=== PATIENT | female | born 1995 | race Caucasian/White ===

== ENCOUNTER 2023-05-27 15:43 | Emergency (ER) | payer MEDICAID ==
[~2023-05-27] VITALS: Ht 165.1 cm; Wt 72.6 kg
[~2023-05-27 15:43] MED LIST: CALCIUM; FERR325E14 PO; PREN-385 PO
[2023-05-27 15:58] VITALS: BP 111/70; PULSE 96; RESP 18; TEMP 98.1; O2SAT 98
[2023-05-27] MEDS ORDERED: ONDANSETRON 4 MG/2 ML VIAL IVP ONE (16:20)
[2023-05-27] MEDS ORDERED: KETOROLAC 30 MG/ML VIAL IVP ONE (16:20)
[2023-05-27] MEDS ORDERED: NACL 0.9% 1,000 ML IV ONE (16:20)
[2023-05-27 17:05] LABS: BASOPHILS % (AUTO) 0.4 % (0.0-2.0); EOSINOPHILS % (AUTO) 0.1 % (0.0-4.0); HEMATOCRIT 39.7 % (36-48); HEMOGLOBIN 13.7 g/dL (12.0-16.0); LYMPHOCYTES # (AUTO) 1.9 K/uL (2.5-16.5); LYMPHOCYTES % (AUTO) 24.1 % (20.5-51.1); MEAN CORPUSCULAR HEMOGLOBIN 31 pg (27-31); MEAN CORPUSCULAR HGB CONC 35 g/dL (33-37); MEAN CORPUSCULAR VOLUME 89.8 fL (80-94); MONOCYTES # (AUTO) 0.9 K/uL (0.8-1.0); MONOCYTES % (AUTO) 11.5 % (1.7-9.3); NEUTROPHILS # (AUTO) 5.1 K/uL (1.8-7.7); NEUTROPHILS % (AUTO) 63.9 % (42.2-75.2); PLATELET COUNT (AUTO) 306 K/uL (140-450); RED BLOOD CELL COUNT(AUTO) 4.42 MIL/uL (4.20-5.40); RED CELL DISTRIBUTION WIDTH 12.4 % (11.6-13.7); WHITE BLOOD COUNT (AUTO) 7.9 K/uL (4.8-10.8)
[2023-05-27 17:12] LABS: APPEARANCE,URINE CLEAR (CLEAR); BILIRUBIN,URINE 1+ (NEGATIVE); BLOOD, URINE NEGATIVE (NEGATIVE); COLOR,URINE YELLOW (YELLOW); LEUKOCYTE ESTERASE ,URINE NEGATIVE (NEGATIVE); NITRITE, URINE NEGATIVE (NEGATIVE); PROTEIN,URINE TRACE (NEGATIVE); UGLUCOSE NEGATIVE (NEGATIVE); UROBILINOGEN,URINE 0.2 EU/dL (0.2 - 1)
[2023-05-27 17:13] LABS: ANION GAP 10.6 (8-16); CALCIUM 8.8 mg/dL (8.5-10.1); CARBON DIOXIDE 28.6 mmol/L (21-32); CREATININE 0.8 mg/dL (0.6-1.3); POTASSIUM 3.2 mmol/L (3.5-5.1)
[2023-05-27 17:20] LABS: ALBUMIN 3.4 g/dL (3.4-5.0); BILIRUBIN,DIRECT 0.1 mg/dL (0.0-0.3); TOTAL BILIRUBIN 0.3 mg/dL (0.0-1.0); TOTAL PROTEIN, SERUM 9.1 g/dL (6.4-8.2)
[2023-05-27 17:20] LABS: ICTOTEST NEGATIVE (NEGATIVE)
[2023-05-27 17:21] LABS: BACTERIA,URINE 2+ /HPF (None Seen); MUCUS,URINE 2+ /LPF (None Seen); RBC,URINE 0-5 /HPF (0-5); SQUAMOUS EPITHELIAL CELL,UR 50-80 /LPF (0-3 (FEW)); TRICHOMONAS,URINE None Seen /HPF (None Seen); WBC,URINE 0-5 /HPF (0-5); YEAST,URINE None Seen /HPF (None Seen)
[2023-05-27 17:34] LABS: FLU A ANTIGEN negative (NEGATIVE); FLU B ANTIGEN NEGATIVE (NEGATIVE)
[2023-05-27 18:44] VITALS: BP 108/65; PULSE 96; RESP 18; O2SAT 98
[2023-05-27] MEDS ORDERED: BENZ1LOZ74 MM (19:20)
[2023-05-27] MEDS ORDERED: ACET-10509 PO (19:20)
[2023-05-27] MEDS ORDERED: ONDA-188 PO (19:20)
== END 2023-05-27 19:26 | disposition home or self-care (01) ==
LOC: MED 15:43
DX: B34.9 Viral infection, unspecified (principal); Z20.822 Contact with and (suspected) exposure to COVID-19; E87.6 Hypokalemia; Z79.899 Other long term (current) drug therapy
CPT/HCPCS: 36415; 71045; 80048; 80076; 81001; 81025; 83690; 85025; 87081; 87086; 87426; 87804; 96361; 96374; 96375; 99284; J1885; J2405; J7030

== ENCOUNTER 2023-05-28 22:16 | Emergency (ER) | payer MEDICAID ==
[~2023-05-28] VITALS: Ht 149.9 cm; Wt 40.8 kg
[~2023-05-28 22:16] MED LIST changes: +ACET-10509 PO; +BENZ1LOZ74 MM; +ONDA-188 PO
[2023-05-28 22:24] VITALS: BP 130/82; PULSE 90; RESP 16; TEMP 98.3; O2SAT 100
[2023-05-28] MEDS ORDERED: ONDANSETRON 4 MG/2 ML VIAL IVP ONE (23:10)
[2023-05-28] MEDS ORDERED: NACL 0.9% 1,000 ML IV ONE (23:10)
[2023-05-28 23:25] LABS: BASOPHILS % (AUTO) 0.3 % (0.0-2.0); EOSINOPHILS % (AUTO) 0.2 % (0.0-4.0); HEMATOCRIT 34.1 % (36-48); HEMOGLOBIN 11.7 g/dL (12.0-16.0); LYMPHOCYTES # (AUTO) 2.7 K/uL (2.5-16.5); LYMPHOCYTES % (AUTO) 31.6 % (20.5-51.1); MEAN CORPUSCULAR HEMOGLOBIN 31 pg (27-31); MEAN CORPUSCULAR HGB CONC 34 g/dL (33-37); MONOCYTES # (AUTO) 0.9 K/uL (0.8-1.0); MONOCYTES % (AUTO) 10.3 % (1.7-9.3); NEUTROPHILS # (AUTO) 4.9 K/uL (1.8-7.7); NEUTROPHILS % (AUTO) 57.6 % (42.2-75.2); PLATELET COUNT (AUTO) 301 K/uL (140-450); RED BLOOD CELL COUNT(AUTO) 3.79 MIL/uL (4.20-5.40); RED CELL DISTRIBUTION WIDTH 12.4 % (11.6-13.7); WHITE BLOOD COUNT (AUTO) 8.5 K/uL (4.8-10.8)
[2023-05-28 23:31] LABS: APPEARANCE,URINE CLEAR (CLEAR); BILIRUBIN,URINE 1+ (NEGATIVE); BLOOD, URINE NEGATIVE (NEGATIVE); COLOR,URINE YELLOW (YELLOW); LEUKOCYTE ESTERASE ,URINE NEGATIVE (NEGATIVE); NITRITE, URINE NEGATIVE (NEGATIVE); PROTEIN,URINE TRACE (NEGATIVE); UGLUCOSE NEGATIVE (NEGATIVE); UROBILINOGEN,URINE 0.2 EU/dL (0.2 - 1)
[2023-05-28 23:32] LABS: ICTOTEST POSITIVE (NEGATIVE)
[2023-05-28 23:38] LABS: CALCIUM 8.3 mg/dL (8.5-10.1); CARBON DIOXIDE 26.3 mmol/L (21-32); CREATININE 0.7 mg/dL (0.6-1.3); POTASSIUM 3.3 mmol/L (3.5-5.1)
[2023-05-28 23:42] LABS: ALBUMIN 2.9 g/dL (3.4-5.0); BILIRUBIN,DIRECT 0.1 mg/dL (0.0-0.3); TOTAL BILIRUBIN 0.3 mg/dL (0.0-1.0); TOTAL PROTEIN, SERUM 8.1 g/dL (6.4-8.2)
[2023-05-28] MEDS ORDERED: MORPHINE SULFATE 4 MG/ML SYR IVP ONE (23:45)
[2023-05-29 00:15] LABS: AMPHETAMINE, URINE NEGATIVE ng/ml (NEG <=1000); BARBITURATE, URINE NEGATIVE ng/ml (NEG <=200); BENZODIAZEPINE, URINE NEGATIVE ng/mL (NEG <=200); CANNABINOID, URINE NEGATIVE ng/mL (NEG <=50); COCAINE, URINE NEGATIVE ng/mL (NEG <=300); OPIATE, URINE NEGATIVE ng/mL (NEG <=2000); PHENCYCLIDINE SCREEN,URINE NEGATIVE ng/mL (NEG <=25)
[2023-05-29] MEDS ORDERED: KETOROLAC 30 MG/ML VIAL IVP ONE (02:10)
[2023-05-29] MEDS ORDERED: NAPR-54 PO (05:01)
[2023-05-29 06:00] VITALS: BP 130/82; PULSE 94; RESP 16; TEMP 98.3; O2SAT 100
== END 2023-05-29 06:00 | disposition home or self-care (01) ==
LOC: MED 22:16
DX: J02.8 Acute pharyngitis due to other specified organisms (principal); R11.2 Nausea with vomiting, unspecified; B97.89 Other viral agents as the cause of diseases classified elsewhere; R53.1 Weakness; Z79.899 Other long term (current) drug therapy
CPT/HCPCS: 36415; 80048; 80076; 80305; 81003; 81025; 83690; 85025; 96361; 96374; 96375; 99284; J1885; J2270; J2405; J7030

== ENCOUNTER 2023-08-14 09:28 | Emergency (ER) | payer MEDICAID ==
[~2023-08-14] VITALS: Ht 149.9 cm; Wt 59.0 kg
[~2023-08-14 09:28] MED LIST changes: +NAPR-54 PO
[2023-08-14 09:45] VITALS: BP 105/64; PULSE 94; RESP 18; TEMP 98.2; O2SAT 96
[2023-08-14] MEDS ORDERED: IBUP-2213 PO (11:31)
[2023-08-14] MEDS ORDERED: BROM118S70 PO (11:31)
[2023-08-14 11:36] VITALS: BP 123/68; PULSE 76; RESP 20; TEMP 98.6; O2SAT 99
== END 2023-08-14 11:36 | disposition home or self-care (01) ==
LOC: MED 09:28
DX: J06.9 Acute upper respiratory infection, unspecified (principal); Z79.899 Other long term (current) drug therapy
CPT/HCPCS: 71045; 99283

== ENCOUNTER 2023-09-24 13:57 | Emergency (ER) | payer MEDICAID ==
[~2023-09-24] VITALS: Ht 149.9 cm; Wt 61.2 kg
[~2023-09-24 13:57] MED LIST changes: +BROM118S70 PO; +IBUP-2213 PO; +NAPR-337 PO; -NAPR-54 PO
[2023-09-24 14:21] VITALS: BP 104/69; PULSE 99; RESP 20; TEMP 98.3; O2SAT 97
[2023-09-24] MEDS ORDERED: BENZ100C6 PO (14:46)
[2023-09-24] MEDS ORDERED: IBUP-2213 PO (14:46)
[2023-09-24] MEDS: DEXAMETHASONE 10 MG/ML VIAL PO ONE (15:05)
[2023-09-24 15:08] LABS: FLU A ANTIGEN negative (NEGATIVE); FLU B ANTIGEN NEGATIVE (NEGATIVE)
[2023-09-24 15:15] VITALS: BP 104/69; PULSE 99; RESP 20; TEMP 98.3; O2SAT 97
== END 2023-09-24 15:15 | disposition home or self-care (01) ==
LOC: MED 13:57
DX: J20.9 Acute bronchitis, unspecified (principal); Z20.822 Contact with and (suspected) exposure to COVID-19; Z79.1 Long term (current) use of non-steroidal anti-inflammatories (NSAID); Z79.899 Other long term (current) drug therapy
CPT/HCPCS: 87426; 87804; 99283; J1100